=== PATIENT | female | born 1995 | race Caucasian/White ===

== ENCOUNTER 2020-04-30 14:50 | Emergency (ER) | payer BC ==
--- NOTE | 2020-04-30 15:39 | PDOC ---
History of Present Illness - General Chief Complaint: Urinary Problem Stated Complaint: SENT BY PMD FOR CAT SCAN FOR RECURRENT UTI Time Seen by Provider: 04/30/20 15:08 - History of Present Illness Initial Comments: 04/30/20 15:31 24yo healthy female presents with urinary urgency, suprapubic pain, and lower back pain for 2.5 weeks after being diagnosed with a UTI, and she states she was sent by her doctor to get a CT scan. States she took 5 days of Macrobid, followed by two days of cipro that "made things worse" followed by another five days of Macrobid. Reports that the urine culture was negative. States the lower back pain has been worse in the last two days. Described as dull, not radiating. Denies fever/chills. Reports some nausea. States she got a yeast infection a few days ago, which has since cleared up. States she gets it every time she take antibiotics. Denies preceding vaginal symptoms. At present, denies vaginal discharge, bleeding, lesions. No history of STIs. On OCPs. Regular periods. LMP 04/01/20. PMH: none PSH: appendectomy, foot surgery Meds: OCPs, vitamins Allergies Allergy/AdvReac Type Severity Reaction Status Date / Time avocado Allergy Severe Difficulty Verified 04/30/20 15:01 Breathing banana Allergy Severe Difficulty Verified 04/30/20 15:00 Breathing lactose Allergy Severe Difficulty Verified 04/30/20 14:59 Breathing latex Allergy Severe Difficulty Verified 04/30/20 15:00 Breathing peanut Allergy Severe Difficulty Verified 04/30/20 14:59 Breathing tree nut Allergy Severe Difficulty Verified 04/30/20 14:59 Breathing ROS GENERAL/CONSTITUTIONAL: No fever or chills. No weakness. HEAD, EYES, EARS, NOSE AND THROAT: No change in vision. No ear pain or discharge. No sore throat. CARDIOVASCULAR: No chest pain or shortness of breath RESPIRATORY: No cough, wheezing, or hemoptysis. GASTROINTESTINAL: nausea,.No vomiting, diarrhea or constipation. GENITOURINARY: Urinary urgency. No dysuria MUSCULOSKELETAL: Back pain. No neck pain SKIN: No rash NEUROLOGIC: No headache, vertigo, loss of consciousness, or change in strength/sensation. ENDOCRINE: No increased thirst. No abnormal weight change HEMATOLOGIC/LYMPHATIC: No anemia, easy bleeding, or history of blood clots. ALLERGIC/IMMUNOLOGIC: No hives or skin allergy. PE GENERAL: Awake, alert, and fully oriented, in no acute distress HEAD: No signs of trauma, normocephalic, atraumatic EYES: PERRLA, EOMI, sclera anicteric, conjunctiva clear ENT: Auricles normal inspection, hearing grossly normal, nares patent, oropharynx clear without exudates. Moist mucosa NECK: Normal ROM, supple, no lymphadenopathy, JVD, or masses LUNGS: No distress, speaks full sentences, clear to auscultation bilaterally HEART: Regular rate and rhythm, normal S1 and S2, no murmurs, rubs or gallops, peripheral pulses normal and equal bilaterally. ABDOMEN: Soft, nontender, normoactive bowel sounds. No guarding, no rebound. No masses EXTREMITIES : Normal inspection, Normal range of motion, no edema. No clubbing or cyanosis. NEUROLOGICAL: Cranial nerves II through XII grossly intact. Normal speech, normal gait, no focal sensorimotor deficits SKIN: Warm, Dry, normal turgor, no rashes or lesions noted Vital Signs Temp Pulse Resp BP Pulse Ox 99.1 F 90 16 116/76 100 04/30/20 14:52 04/30/20 14:52 04/30/20 14:52 04/30/20 14:52 04/30/20 14:52 04/30/20 15:56 24yo healthy female presents with urinary urgency, suprapubic pain, and lower back pain for 2.5 weeks after being diagnosed with a UTI, and she states she was sent by her doctor to get a CT scan. DDx includes UTI, pyelonephritis, antibiotic side-effect -CBC, CMP -UA/UC 04/30/20 19:09 Labs wnl. UA shows few white cells, which patient states is what the last one from her PCP showed. Culture pending. Patient not interested in antibiotics. Patient requested CT scan, but agreed wit h the plan to hold off for now. Strict return precautions given, and can revisit the need for a CT scan at a later time. DC home with PCP and OBGYN f/u. Past History - Medical History Allergies/Adverse Reactions: Allergies Allergy/AdvReac Type Severity Reaction Status Date / Time avocado Allergy Severe Difficulty Verified 04/30/20 15:01 Breathing banana Allergy Severe Difficulty Verified 04/30/20 15:00 Breathing lactose Allergy Severe Difficulty Verified 04/30/20 14:59 Breathing latex Allergy Severe Difficulty Verified 04/30/20 15:00 Breathing peanut Allergy Severe Difficulty Verified 04/30/20 14:59 Breathing tree nut Allergy Severe Difficulty Verified 04/30/20 14:59 Breathing Home Medications: Ambulatory Orders Norgestrel-Ethinyl Estradiol [Yto-Ohtxowdy-25 Tablet] 1 tab PO DAILY 04/30/20 COPD: No Psychiatric Problems: Yes (Anxiety) Other medical history: frequent uti - Surgical History Appendectomy: Yes - Reproductive History Is Patient Now?: No - Psycho-Social/Smoking History Smoking History: Never smoked Have you smoked in the past 12 months: No Information on smoking cessation initiated: No - Substance Abuse Hx (Audit-C & DAST Scrn) How often the patient has a drink containing alcohol: 2-4 times / month Number of drinks the patient has on a typical day: 1 or 2 Score: In Men: 4 or > Positive; In Women: 3 or > Positive: 2 Screen Result (Pos requires Nsg. Audit-10AR): Negative In the last yr the pt used illegal drug/Rx for NonMed reason: No Score: Yes response is considered Positive: 0 Screen Result (Positive result requires Nsg. DAST-10): Negative *Physical Exam - Vital Signs Last Vital Signs Temp Pulse Resp BP Pulse Ox 99.1 F 90 16 116/76 100 04/30/20 14:52 04/30/20 14:52 04/30/20 14:52 04/30/20 14:52 04/30/20 14:52 ED Treatment Course - LABORATORY CBC & Chemistry Diagram: 04/30/20 16:45 04/30/20 16:27 Discharge - Discharge Information Problems reviewed: Yes Clinical Impression/Diagnosis: Urinary urgency, Suprapubic pain Back pain Qualifiers: Back pain location: low back pain Chronicity: acute Back pain laterality: bilateral Sciatica presence: without sciatica Qualified Code(s): M54.5 - Low back pain Condition: Stable Disposition: HOME - Admission No - Follow up/Referral Referrals: Corrina Isbell MD [Primary Care Provider] - - Patient Discharge Instructions Additional Instructions: You were seen in the ER for urinary urgency, abdominal pain, and back pain. You labs did not show signs of infection, and we decided not to pursue a CT scan. Your urine culture will result in 2-3 days, and you will get a call if it grows bacteria. You should follow up with your primary doctor and OBGYN within one week. Please return for new, persistent, or worsening symptoms, fever, chills, or any other reason. - Post Discharge Activity
[2020-04-30 15:42] VITALS: BP 116/76; PULSE 90; TEMP 99.1; BMI 19.2
[2020-04-30 16:37] LABS: EPITHELIAL CELLS RARE /hpf
[2020-04-30 16:50] LABS: BASO % 1.2 % (0-2.0); EOS % 3.8 % (0-4.5); HEMATOCRIT 36.9 % (32.4-45.2); HEMOGLOBIN 12.6 GM/dl (10.7-15.3); LYMPH % 29.2 % (8-40); MCH 33.6 pg (25.7-33.7); MCHC 34.2 g/dl (32.0-36.0); MEAN CELL VOLUME 98.4 fl (80-96); MEAN PLT VOLUME 8.7 fl (7.5-11.1); MONO % 4.4 % (3.8-10.2); NEUT % 61.4 % (42.8-82.8); PLATELET COUNT 254 K/MM3 (134-434); RBC 3.75 M/mm3 (3.60-5.2); RDW 11.2 % (11.6-15.6); WHITE BLOOD COUNT 8.1 K/mm3 (4.0-10.8)
[2020-04-30 16:59] LABS: ALBUMIN 4.3 g/dl (3.4-5.0); BILIRUBIN,TOTAL 0.6 mg/dl (0.2-1); CALCIUM 9.1 mg/dl (8.5-10); CREATININE 0.6 mg/dl (0.55-1.3); TOT PROT 7.7 g/dl (6.4-8.2)
--- NOTE | 2020-04-30 17:17 | PDOC ---
Attending Attestation - Resident Resident Name: [email or web address] - ED Attending Attestation I have performed the following: I have examined & evaluated the patient, The case was reviewed & discussed with the resident, I agree w/resident's findings & plan, Exceptions are as noted - HPI HPI: 04/30/20 17:12 Treated for UTI for 2 weeks, with a course of nitrofurantoin, and then 2 days of Cipro. Symptoms persist. She has no dysuria, but complains of suprapubic discomfort, pain across the lower back without localization to one side or the other, and a vague "discomfort" in the vaginal area, though she denies bleeding, itching, or rash. No fever or chills. Eating normally. No other signs of systemic toxicity Developed a yeast infection during her first course of nitrofurantoin, which she treated effectively with [id number] medication. Prior urine culture at the time of her initial symptoms showed no growth. - Physicial Exam PE: 04/30/20 17:15 Examination reveals normal vital signs, no fever Abdomen is nondistended with normal bowel sounds. There is mild tenderness over the bladder, reported by the patient but there is no guarding, rebound, or other definite sign of significant pain on examination. Remainder physical exam is normal. She appears well-developed and well- nourished. She does not appear to be in any significant discomfort. - Medical Decision Making 04/30/20 17:17 Assessment: It seems unlikely that she has a urinary tract infection, given the negative urine culture, the persistence of symptoms despite 2 courses of antibiotics, the lack of dysuria. Although she had a normal NUT RO[employer]ER exam in August, it seems more likely this is either a NUT ROASTER problem, a local vaginal process, or possibly superimposed GI upset due to the nitrofurantoin. However, the patient is convinced she has a UTI nonetheless. Plan: Urine culture is pending. I suspect it will show no growth. In any event, offered empirically treatment with cephalexin pending culture results, but patient was resistant to taking more antibiotics at present. It was decided to withhold any further antibiotic treatment pending the results of the urine culture, and encourage follow-up with [facility] and urology. Fully ambulatory and no significant pain or other distress at discharge. She will continue probiotics to counteract possible stomach and intestinal etiology from prior antibiotics. Discharge - Discharge Information Problems reviewed: Yes Clinical Impression/Diagnosis: Urinary urgency, Suprapubic pain, Back pain Condition: Stable Disposition: HOME - Follow up/Referral Referrals: Corrina Isbell MD [Primary Care Provider] - - Patient Discharge Instructions Additional Instructions: You were seen in the ER for urinary urgency, abdominal pain, and back pain. You labs did not show signs of infection, and we decided not to pursue a CT scan. Your urine culture will result in 2-3 days, and you will get a call if it grows bacteria. You should follow up with your primary doctor and OBGYN within one week. Please return for new, persistent, or worsening symptoms, fever, chills, or any other reason. - Post Discharge Activity
== END 2020-04-30 17:35 | disposition home or self-care (01) ==
LOC: FER 14:50
DX: R39.15 Urgency of urination (principal); M54.5 Low back pain
CPT/HCPCS: 36415; 80053; 81003; 81015; 84703; 85025; 87086; 99283-25

== ENCOUNTER 2021-11-25 16:24 | Emergency (ER) | payer BC ==
[2021-11-25 16:54] VITALS: BP 128/76; PULSE 88; TEMP 99.4; BMI 18.5
[2021-11-25 18:36] LABS: HCG,QUALITATIVE URINE Negative
[2021-11-25 18:51] LABS: ALBUMIN 4.6 g/dl (3.4-5.0); BILIRUBIN,TOTAL 0.6 mg/dl (0.2-1); CALCIUM 9.3 mg/dl (8.5-10); CREATININE 0.6 mg/dl (0.55-1.3); TOT PROT 7.3 g/dl (6.4-8.2)
[2021-11-25 19:24] LABS: BASO % 0.6 % (0-2.0); EOS % 0.2 % (0-4.5); HEMATOCRIT 38.2 % (32.4-45.2); HEMOGLOBIN 13.3 GM/dL (10.7-15.3); LYMPH % 33.5 % (8-40); MCH 33.5 pg (25.7-33.7); MCHC 34.8 g/dl (32.0-36.0); MEAN CELL VOLUME 96.4 fl (80-96); MEAN PLT VOLUME 8.9 fl (7.5-11.1); NEUT % 60.7 % (42.8-82.8); PLATELET COUNT 216 10^3/uL (134-434); RBC 3.96 M/mm3 (3.60-5.2); WHITE BLOOD COUNT 7.1 K/mm3 (4.0-10.0)
[2021-11-25] MEDS ORDERED: MICONAZOLE NITRATE 100 MG SUPP SUPP.VAG PV SCH (22:00)
== END 2021-11-25 19:22 | disposition home or self-care (01) ==
LOC: SUPCPDRO 16:24 → FER 16:24
DX: B37.3 Candidiasis of vulva and vagina (principal)
CPT/HCPCS: 36415; 80053; 81003; 84703; 85025; 87086; 87491; 87591; 99283-25